=== PATIENT | male | born 1940 | race Caucasian/White ===

== ENCOUNTER 2021-09-18 12:44 | Inpatient (IN) | payer MEDICARE, OTHER ==
[~2021-09-18] VITALS: Ht 170.2 cm; Wt 69.1 kg
[~2021-09-18 12:44] MED LIST: AMLO-489 PO; COLC1TAB3 PO; COLCPOW2 PO; FER325T PO; FINA5TAB4 OR; GEMF-19 OR; LEVO25TA49 PO; MEM5T PO; MULT-97 OR; MULTCAP45 PO; PANT40T PO; TAMS0.4C36 OR
[2021-09-18 13:50] LABS: Eosinophils # (auto) 0.1 10 ^3/uL (0-0.8); Lymphocytes # (auto) 0.6 10 ^3/uL (0.4-5.4); Monocytes # (auto) 0.4 10 ^3/uL (0-1.3); Neutrophils # (auto) 2.3 10 ^3/uL (1.6-8.6)
[2021-09-18 13:52] LABS: Basophils # (auto) 0 10 ^3/uL (0-0.2); Basophils % (auto) 1.1 % (0.0-2.0); Eosinophils % (auto) 2.6 % (0.0-7.0); Hematocrit 35.7 % (41.0-53.0); Hemoglobin 11.9 g/dL (13.5-17.5); Lymphocytes % (auto) 18.2 % (10.0-50.0); Mean Corpuscular Hemoglobin 27.8 pg (28.0-32.0); Mean Corpuscular Hgb Conc. 33.4 g/dL (32.0-36.0); Mean Corpuscular Volume 83.2 fL (80.0-100.0); Monocytes % (auto) 12.6 % (0.0-12.0); Neutrophils % (auto) 65.5 % (37.0-80.0); Nucleated Red Blood Cells % 0.2 %; Red Blood Cells 4.29 10^6/uL (4.5-5.90); Red Cell Distribution Width 15.9 % (11.8-14.3); White Blood Cell 3.5 10^3/uL (4.4-10.8)
[2021-09-18 15:05] LABS: Albumin 3.4 g/dL (3.4-5.0); BUN/Creatinine Ratio 29.3; Bilirubin, Total 0.7 mg/dL (0.2-1.0); Calcium 8.8 mg/dL (8.5-10.1); Total Protein 6.8 g/dL (6.4-8.2)
[2021-09-18] MEDS ORDERED: NITROGLYCERIN 0.4 MG SL TAB SL PRN ×2 (17:15→18:30)
[2021-09-18] MEDS ORDERED: MORPHINE SULFATE INJECTION 2 MG/ML SYRG IV PRN ×2 (17:15→18:30)
[2021-09-18] MEDS ORDERED: PANTOPRAZOLE 40 MG/10 ML VIAL INJ IV ONE (18:00)
[2021-09-18] MEDS ORDERED: methylPREDNISolone SOD SUCC 125 MG/2 ML VL IV ONE (18:00)
[2021-09-18] MEDS: SODIUM CHLORIDE 0.9% 1,000 ML IV SCH (18:10)
[2021-09-18] MEDS ORDERED: ONDANSETRON HCL 4 MG/2 ML VIAL IV PRN (18:30)
[2021-09-18] MEDS ORDERED: HYDROcodone-ACET 5/325MG TAB PO PRN (18:30)
[2021-09-18] MEDS ORDERED: LORazepam 0.5 MG TAB PO PRN (18:30)
[2021-09-18] MEDS ORDERED: DOCUSATE SOD 100 MG CAP PO PRN (18:30)
[2021-09-18] MEDS ORDERED: ALUM & MAG HYDROX-SIMETH LIQ(MAALOX) 30 ML PO PRN (18:30)
[2021-09-18 18:50] LABS: Cholesterol 153 mg/dL (< 200)
[2021-09-18 18:52] LABS: HDL Cholesterol 51 mg/dL (40-59); LDL Cholesterol 88 mg/dL (< 100); Triglycerides 86 mg/dL (< 150)
[2021-09-18 21:00] VITALS: BP 153/81
[2021-09-18 21:22] VITALS: BP 133/67
[2021-09-18 21:37] VITALS: BP 140/68
[2021-09-18 22:00] VITALS: BP 153/81
[2021-09-18 22:19] LABS: Urine Bacteria NONE SEEN /hpf (None Seen); Urine Blood Negative /uL (Negative); Urine Mucus FEW (None Seen); Urine Specific Gravity 1.016 (1.001-1.035); Urine WBC 1 /hpf (0 - 3)
[2021-09-18 22:29] LABS: Amphetamine Screen, Urine NEGATIVE (NEGATIVE); Barbiturate Scree,Urine NEGATIVE (NEGATIVE); Benzodiazephine Screen, Urine NEGATIVE (NEGATIVE); Cannabinoid Screen, Urine NEGATIVE (NEGATIVE); Cocaine Screen, Urine NEGATIVE (NEGATIVE); Opiate Scree,Urine NEGATIVE (NEGATIVE); Phencyclidine Screen, Urine NEGATIVE (NEGATIVE)
[2021-09-19] VITALS (10 sets, daily range): BP systolic 112–140; BP diastolic 51–71
[2021-09-19] MEDS: methylPREDNISolone SOD SUCC 40 MG/ML VL IV SCH ×3 (00:45→12:16)
[2021-09-19 06:07] LABS: Basophils # (auto) 0 10 ^3/uL (0-0.2); Eosinophils # (auto) 0 10 ^3/uL (0-0.8); Lymphocytes # (auto) 0.4 10 ^3/uL (0.4-5.4); Mean Corpuscular Hemoglobin 28.6 pg (28.0-32.0); Monocytes # (auto) 0.1 10 ^3/uL (0-1.3); Neutrophils # (auto) 2.2 10 ^3/uL (1.6-8.6); White Blood Cell 2.7 10^3/uL (4.4-10.8)
[2021-09-19 06:11] LABS: Basophils % (auto) 0.6 % (0.0-2.0); Eosinophils % (auto) 0.2 % (0.0-7.0); Hematocrit 31.4 % (41.0-53.0); Hemoglobin 10.7 g/dL (13.5-17.5); Lymphocytes % (auto) 15.2 % (10.0-50.0); Mean Corpuscular Hgb Conc. 34.2 g/dL (32.0-36.0); Mean Corpuscular Volume 83.8 fL (80.0-100.0); Monocytes % (auto) 3.1 % (0.0-12.0); Neutrophils % (auto) 80.9 % (37.0-80.0); Red Blood Cells 3.75 10^6/uL (4.5-5.90); Red Cell Distribution Width 15.9 % (11.8-14.3)
[2021-09-19 06:19] LABS: INR 1.1 (0.9-1.15); Partial Thromboplastin Time 26.2 sec (23.6-33.0)
[2021-09-19 06:26] LABS: Potassium 4.2 mmol/L (3.5-5.1)
[2021-09-19] MEDS: LEVOTHYROXINE SODIUM 25 MCG TAB PO SCH (06:37)
[2021-09-19 06:41] LABS: Albumin 2.9 g/dL (3.4-5.0); BUN/Creatinine Ratio 25.9; Bilirubin, Total 0.5 mg/dL (0.2-1.0); Calcium 8.2 mg/dL (8.5-10.1); Magnesium 2.6 mg/dL (1.6-2.6); Total Protein 6.1 g/dL (6.4-8.2)
[2021-09-19] MEDS: GEMFIBROZIL 600 MG TAB PO SCH (09:16)
[2021-09-19] MEDS: FERROUS SULFATE 325mg EC TAB PO SCH ×2 (09:16→16:49)
[2021-09-19] MEDS: amLODIPine BESYLATE 5 MG TAB PO SCH (09:17)
[2021-09-19] MEDS: PANTOPRAZOLE 40 MG TAB PO SCH (09:18)
[2021-09-19] MEDS: FINASTERIDE 5 MG TAB PO SCH (09:18)
[2021-09-19] MEDS: MULTIPLE VITAMIN TAB PO SCH (09:20)
[2021-09-19] MEDS ORDERED: PANTOPRAZOLE 40 MG/10 ML VIAL INJ IV SCH (10:00)
[2021-09-19] MEDS: SODIUM CHLORIDE 0.9% 1,000 ML IV SCH (12:15)
[2021-09-19] MEDS ORDERED: methylPREDNISolone SOD SUCC 125 MG/2 ML VL IV SCH (14:00)
[2021-09-19] MEDS ORDERED: TAMSULOSIN HYDROCHLORIDE 0.4 MG CAP PO SCH (18:00)
[2021-09-19] MEDS: methylPREDNISolone SOD SUCC 125 MG/2 ML VL IV SCH (21:35)
[2021-09-20 02:30] VITALS: BP 129/72
[2021-09-20 02:53] VITALS: BP 117/62
[2021-09-20] MEDS: SODIUM CHLORIDE 0.9% 1,000 ML IV SCH (03:20)
[2021-09-20 04:43] VITALS: BP 123/50
[2021-09-20] MEDS: methylPREDNISolone SOD SUCC 125 MG/2 ML VL IV SCH ×2 (06:07→10:10)
[2021-09-20] MEDS: LEVOTHYROXINE SODIUM 25 MCG TAB PO SCH (06:10)
[2021-09-20 06:30] VITALS: BP 123/50
[2021-09-20 07:17] LABS: Basophils # (auto) 0 10 ^3/uL (0-0.2); Basophils % (auto) 0.1 % (0.0-2.0); Eosinophils # (auto) 0 10 ^3/uL (0-0.8); Eosinophils % (auto) 0.1 % (0.0-7.0); Hematocrit 32.7 % (41.0-53.0); Hemoglobin 11.4 g/dL (13.5-17.5); Lymphocytes # (auto) 0.7 10 ^3/uL (0.4-5.4); Lymphocytes % (auto) 10.8 % (10.0-50.0); Mean Corpuscular Hemoglobin 29.3 pg (28.0-32.0); Mean Corpuscular Hgb Conc. 34.9 g/dL (32.0-36.0); Monocytes # (auto) 0.3 10 ^3/uL (0-1.3); Neutrophils # (auto) 5.1 10 ^3/uL (1.6-8.6); Nucleated Red Blood Cells % 0.1 %; White Blood Cell 6.1 10^3/uL (4.4-10.8)
[2021-09-20 07:29] LABS: Potassium 4.2 mmol/L (3.5-5.1)
[2021-09-20 07:38] LABS: Albumin 3.3 g/dL (3.4-5.0); BUN/Creatinine Ratio 29.7; Bilirubin, Total 0.4 mg/dL (0.2-1.0); Calcium 8.5 mg/dL (8.5-10.1); Total Protein 6.3 g/dL (6.4-8.2)
[2021-09-20 09:00] VITALS: BP 143/71
[2021-09-20] MEDS: FERROUS SULFATE 325mg EC TAB PO SCH (10:07)
[2021-09-20] MEDS: MULTIPLE VITAMIN TAB PO SCH (10:08)
[2021-09-20] MEDS: GEMFIBROZIL 600 MG TAB PO SCH (10:08)
[2021-09-20] MEDS: FINASTERIDE 5 MG TAB PO SCH (10:09)
[2021-09-20] MEDS: PANTOPRAZOLE 40 MG TAB PO SCH (10:09)
[2021-09-20] MEDS: amLODIPine BESYLATE 5 MG TAB PO SCH (10:09)
[2021-09-20 12:16] VITALS: BP 125/75
== END 2021-09-20 12:30 | disposition home or self-care (01) | DRG 813 ==
LOC: ER 12:44 → TELE 17:15 → TELE-WESTW 18:55
PROVIDERS: ADMIT Hospitalist; ATTEND Family Medicine
PROC: 30233R1 Transfusion of Nonautologous Platelets into Peripheral Vein, Percutaneous Approach (ICD-10-PCS; principal; 2021-09-18)
DX: D69.3 Immune thrombocytopenic purpura (principal); C91.10 Chronic lymphocytic leukemia of B-cell type not having achieved remission; D75.81 Myelofibrosis; D64.9 Anemia, unspecified; E03.9 Hypothyroidism, unspecified; E78.00 Pure hypercholesterolemia, unspecified; E78.5 Hyperlipidemia, unspecified; G30.9 Alzheimer's disease, unspecified; F02.80 Dementia in other diseases classified elsewhere, unspecified severity, without behavioral disturbance, psychotic disturbance, mood disturbance, and anxiety; M10.9 Gout, unspecified; H91.90 Unspecified hearing loss, unspecified ear; I10 Essential (primary) hypertension; S50.12XA Contusion of left forearm, initial encounter; S50.11XA Contusion of right forearm, initial encounter; X58.XXXA Exposure to other specified factors, initial encounter; K21.9 Gastro-esophageal reflux disease without esophagitis; N40.0 Benign prostatic hyperplasia without lower urinary tract symptoms; Z80.0 Family history of malignant neoplasm of digestive organs; Z80.42 Family history of malignant neoplasm of prostate; Z85.038 Personal history of other malignant neoplasm of large intestine; Z85.46 Personal history of malignant neoplasm of prostate; Z86.2 Personal history of diseases of the blood and blood-forming organs and certain disorders involving the immune mechanism; Z88.0 Allergy status to penicillin; Z88.8 Allergy status to other drugs, medicaments and biological substances; Z90.49 Acquired absence of other specified parts of digestive tract; Y93.89 Activity, other specified; Y92.89 Other specified places as the place of occurrence of the external cause; Y99.8 Other external cause status
CPT/HCPCS: 36415; 80053; 80061; 80307; 81001; 83036; 83735; 83880; 84100; 84484; 85025; 85049; 85610; 85730; 86022; 86850; 86900; 86901; 87040; 87086; 87426; 96361; 96374; 96375; C9113; G0378

== ENCOUNTER 2021-12-14 13:44 | Inpatient (IN) | payer MEDICARE, OTHER ==
[~2021-12-14] VITALS: Ht 172.7 cm; Wt 66.3 kg
[~2021-12-14 13:44] MED LIST changes: -COLC1TAB3 PO; -MEM5T PO; -MULTCAP45 PO; -PANT40T PO
[2021-12-14] MEDS ORDERED: SODIUM CHLORIDE 0.9% 500 ML IVB ONE (14:00)
[2021-12-14 15:09] LABS: Basophils # (auto) 0.3 10 ^3/uL (0-0.2); Basophils % (auto) 5.4 % (0.0-2.0); Eosinophils # (auto) 0.1 10 ^3/uL (0-0.8); Eosinophils % (auto) 2.1 % (0.0-7.0); Hematocrit 43.3 % (41.0-53.0); Hemoglobin 14.8 g/dL (13.5-17.5); Lymphocytes # (auto) 0.5 10 ^3/uL (0.4-5.4); Lymphocytes % (auto) 7.5 % (10.0-50.0); Mean Corpuscular Hemoglobin 31.1 pg (28.0-32.0); Mean Corpuscular Hgb Conc. 34.2 g/dL (32.0-36.0); Mean Corpuscular Volume 90.8 fL (80.0-100.0); Monocytes # (auto) 0.5 10 ^3/uL (0-1.3); Monocytes % (auto) 7.7 % (0.0-12.0); Neutrophils # (auto) 4.9 10 ^3/uL (1.6-8.6); Neutrophils % (auto) 77.3 % (37.0-80.0); Red Blood Cells 4.77 10^6/uL (4.5-5.90); Red Cell Distribution Width 13.1 % (11.8-14.3); White Blood Cell 6.3 10^3/uL (4.4-10.8)
[2021-12-14 15:35] LABS: Albumin 2.8 g/dL (3.4-5.0); Calcium 8.2 mg/dL (8.5-10.1); Potassium 3.7 mmol/L (3.5-5.1)
[2021-12-14 15:39] LABS: BUN/Creatinine Ratio 10.3; Bilirubin, Total 0.4 mg/dL (0.2-1.0); Total Protein 5.8 g/dL (6.4-8.2)
[2021-12-14 17:01] LABS: Urine Bacteria MOD /hpf (None Seen); Urine Blood 1+ /uL (Negative); Urine Budding Yeast FEW /hpf (None Seen); Urine Hyaline Cast FEW /lpf (0 - 2); Urine Specific Gravity 1.013 (1.001-1.035); Urine WBC 412 /hpf (0 - 3)
[2021-12-14] MEDS ORDERED: MORPHINE SULFATE INJECTION 2 MG/ML SYRG IV PRN ×3 (17:45→18:00)
[2021-12-14] MEDS ORDERED: cefTRIAXone 1GM/50ML D5W 50 ML IV ONE (17:45)
[2021-12-14] MEDS ORDERED: NITROGLYCERIN 0.4 MG SL TAB SL PRN ×2 (17:45→18:00)
[2021-12-14] MEDS ORDERED: TEMAZEPAM 15 MG CAP PO PRN (18:00)
[2021-12-14] MEDS ORDERED: ACETAMINOPHEN 325 MG TAB PO PRN (18:00)
[2021-12-14] MEDS ORDERED: METOCLOPRAMIDE HCL 5MG/ml INJ 2ml VIAL IV PRN (18:00)
[2021-12-14] MEDS ORDERED: DOCUSATE SOD 100 MG CAP PO PRN (18:00)
[2021-12-14] MEDS: SODIUM CHLORIDE 0.9% 1,000 ML IV SCH (18:26)
[2021-12-14] MEDS ORDERED: BUMETANIDE 2.5mg/10ml (0.25 mg/ml) INJ IV ONE (18:30)
[2021-12-14 19:11] LABS: Cholesterol 144 mg/dL (< 200); HDL Cholesterol 30 mg/dL (40-59); Triglycerides 93 mg/dL (< 150)
[2021-12-14 21:29] VITALS: BP 128/61
[2021-12-14 21:30] VITALS: BP 128/68
[2021-12-15] MEDS: SODIUM CHLORIDE 0.9% 1,000 ML IV SCH (00:44)
[2021-12-15 05:00] VITALS: BP 103/56
[2021-12-15] MEDS ORDERED: BENA10TA15 PO (06:30)
[2021-12-15] MEDS: BUMETANIDE 2.5mg/10ml (0.25 mg/ml) INJ IV SCH ×2 (06:45→17:34)
[2021-12-15] MEDS: FERROUS SULFATE 325mg EC TAB PO SCH ×2 (08:05→17:34)
[2021-12-15 09:00] VITALS: BP 117/79
[2021-12-15] MEDS: levoFLOXacin 500MG 100 ML IV SCH (10:12)
[2021-12-15] MEDS: TAMSULOSIN HYDROCHLORIDE 0.4 MG CAP PO SCH (10:12)
[2021-12-15] MEDS: ENOXAPARIN SOD 40 MG/0.4 ML SYRINGE SC SCH (10:13)
[2021-12-15] MEDS: LEVOTHYROXINE SODIUM 25 MCG TAB PO SCH (10:13)
[2021-12-15] MEDS: GEMFIBROZIL 600 MG TAB PO SCH (10:13)
[2021-12-15] MEDS: FINASTERIDE 5 MG TAB PO SCH (10:13)
[2021-12-15 12:06] VITALS: BP 119/68
[2021-12-15] MEDS ORDERED: VANCOMYCIN PER PHARMACY 0 MG IV SCH (13:30)
[2021-12-15] MEDS ORDERED: VANCOMYCIN 1GM/250ML 250 ML IV ONE (13:45)
[2021-12-15 16:21] VITALS: BP 109/68
[2021-12-15 22:24] VITALS: BP 123/68
[2021-12-16 05:00] VITALS: BP 110/69
[2021-12-16] MEDS: VANCOMYCIN 750mg/250ml 250 ML IV SCH ×2 (05:37→18:44)
[2021-12-16] MEDS: BUMETANIDE 2.5mg/10ml (0.25 mg/ml) INJ IV SCH (05:37)
[2021-12-16 06:04] LABS: Basophils # (auto) 0 10 ^3/uL (0-0.2); Basophils % (auto) 0.2 % (0.0-2.0); Eosinophils # (auto) 0 10 ^3/uL (0-0.8); Eosinophils % (auto) 0.4 % (0.0-7.0); Lymphocytes # (auto) 0.1 10 ^3/uL (0.4-5.4); Monocytes # (auto) 0.1 10 ^3/uL (0-1.3); Neutrophils # (auto) 3.2 10 ^3/uL (1.6-8.6); White Blood Cell 3.5 10^3/uL (4.4-10.8)
[2021-12-16 06:07] LABS: Hemoglobin 10.2 g/dL (13.5-17.5); Lymphocytes % (auto) 3.9 % (10.0-50.0); Mean Corpuscular Hemoglobin 30.2 pg (28.0-32.0); Mean Corpuscular Hgb Conc. 36.3 g/dL (32.0-36.0); Mean Corpuscular Volume 83.2 fL (80.0-100.0); Monocytes % (auto) 3.6 % (0.0-12.0); Neutrophils % (auto) 91.9 % (37.0-80.0); Nucleated Red Blood Cells % 0.3 %; Red Blood Cells 3.36 10^6/uL (4.5-5.90); Red Cell Distribution Width 18.2 % (11.8-14.3)
[2021-12-16 06:27] LABS: Albumin 2.1 g/dL (3.4-5.0); BUN/Creatinine Ratio 33.7; Bilirubin, Total 0.9 mg/dL (0.2-1.0); Calcium 7.9 mg/dL (8.5-10.1)
[2021-12-16 06:30] LABS: Potassium 2.7 mmol/L (3.5-5.1)
[2021-12-16] MEDS ORDERED: POTASSIUM CHL 20 Meq TABLET PO ONE (07:00)
[2021-12-16 09:00] VITALS: BP 112/67
[2021-12-16] MEDS: SODIUM CHLORIDE 0.9% 1,000 ML IV SCH ×2 (09:40→20:00)
[2021-12-16] MEDS: GEMFIBROZIL 600 MG TAB PO SCH (09:42)
[2021-12-16] MEDS: TAMSULOSIN HYDROCHLORIDE 0.4 MG CAP PO SCH (09:42)
[2021-12-16] MEDS: ENOXAPARIN SOD 40 MG/0.4 ML SYRINGE SC SCH (09:43)
[2021-12-16] MEDS: LEVOTHYROXINE SODIUM 25 MCG TAB PO SCH (09:43)
[2021-12-16] MEDS: levoFLOXacin 500MG 100 ML IV SCH (09:43)
[2021-12-16] MEDS: FERROUS SULFATE 325mg EC TAB PO SCH ×2 (09:43→18:44)
[2021-12-16] MEDS: FINASTERIDE 5 MG TAB PO SCH (09:43)
[2021-12-16 13:00] VITALS: BP 121/59
[2021-12-16 17:00] VITALS: BP 115/69
[2021-12-16] MEDS ORDERED: diphenhdrAMINE HCL 25 MG CAP PO ONE (18:15)
[2021-12-16] MEDS ORDERED: ACETAMINOPHEN 325 MG TAB PO ONE (18:15)
[2021-12-16 21:46] VITALS: BP 108/59
[2021-12-16] MEDS: methylPREDNISolone SOD SUCC 125 MG/2 ML VL IV SCH (22:35)
[2021-12-16] MEDS: ACETAMINOPHEN 325 MG TAB PO SCH (22:40)
[2021-12-16] MEDS: diphenhdrAMINE HCL 25 MG CAP PO SCH (22:40)
[2021-12-17] VITALS (8 sets, daily range): BP systolic 105–122; BP diastolic 63–73
[2021-12-17 06:00] LABS: Hemoglobin 9.6 g/dL (13.5-17.5)
[2021-12-17 06:06] LABS: Mean Corpuscular Hemoglobin 30.3 pg (28.0-32.0); Mean Corpuscular Hgb Conc. 35.6 g/dL (32.0-36.0); Mean Corpuscular Volume 85.1 fL (80.0-100.0); Red Blood Cells 3.18 10^6/uL (4.5-5.90); Red Cell Distribution Width 18.3 % (11.8-14.3); White Blood Cell 2.5 10^3/uL (4.4-10.8)
[2021-12-17 06:17] LABS: Albumin 2.2 g/dL (3.4-5.0); Calcium 7.7 mg/dL (8.5-10.1); Potassium 4.2 mmol/L (3.5-5.1)
[2021-12-17 06:21] LABS: Total Protein 5.2 g/dL (6.4-8.2)
[2021-12-17 06:26] LABS: Basophils % (manual) 0 (0.0-2.0); Blast Cells 0; Eosinophils % (manual) 0 (0-7); Metamyelocytes % 0; Myelocytes % 0; Promyelocytes % 0; Reactive Lymphocytes 0
[2021-12-17] MEDS: methylPREDNISolone SOD SUCC 125 MG/2 ML VL IV SCH (06:27)
[2021-12-17] MEDS: BUMETANIDE 1mg/4ml VIAL (0.25mg/ml) IV SCH ×2 (06:31→18:14)
[2021-12-17] MEDS: LEVOTHYROXINE SODIUM 25 MCG TAB PO SCH (06:39)
[2021-12-17] MEDS: VANCOMYCIN 750mg/250ml 250 ML IV SCH ×2 (08:00→18:15)
[2021-12-17] MEDS: FERROUS SULFATE 325mg EC TAB PO SCH ×2 (08:35→18:15)
[2021-12-17 09:00] LABS: Band Neutrophils % (manual) 7; Lymphocytes % (manual) 4 (10.0-50.0); Monocytes % (manual) 2 (0-12)
[2021-12-17] MEDS: ENOXAPARIN SOD 40 MG/0.4 ML SYRINGE SC SCH (10:00)
[2021-12-17] MEDS: levoFLOXacin 500MG 100 ML IV SCH (10:21)
[2021-12-17] MEDS: FINASTERIDE 5 MG TAB PO SCH (10:22)
[2021-12-17] MEDS: GEMFIBROZIL 600 MG TAB PO SCH (10:22)
[2021-12-17] MEDS: TAMSULOSIN HYDROCHLORIDE 0.4 MG CAP PO SCH (10:22)
[2021-12-17] MEDS ORDERED: PRED20TA2 PO (10:42)
[2021-12-17] MEDS ORDERED: LEVO100C3 PO (10:42)
[2021-12-17] MEDS ORDERED: POTA10TA51 PO (10:42)
[2021-12-17] MEDS ORDERED: METF-916 PO (10:42)
[2021-12-17] MEDS ORDERED: CHLO25TA2 PO (10:42)
[2021-12-17] MEDS ORDERED: COLC0.6T56 PO (10:42)
[2021-12-17] MEDS ORDERED: AMLO-489 PO (10:49)
[2021-12-17] MEDS ORDERED: BENA10TA15 PO (10:49)
[2021-12-17] MEDS: SODIUM CHLORIDE 0.9% 1,000 ML IV SCH (12:51)
[2021-12-17] MEDS ORDERED: DEXTROSE (50%) 50ML SYRG IV PRN (16:00)
[2021-12-17] MEDS: methylPREDNISolone SOD SUCC 40 MG/ML VL IV SCH ×2 (16:41→22:09)
[2021-12-17] MEDS: InsuLIN REG 1unit/0.01ml Soln (100units/ml) SC SCH ×2 (16:44→22:36)
[2021-12-17] MEDS: ACCU-CHEK COMFORT CURVE STRIP VI SCH ×2 (16:53→22:00)
[2021-12-17] MEDS: ACETAMINOPHEN 325 MG TAB PO SCH (21:22)
[2021-12-17] MEDS: diphenhdrAMINE HCL 25 MG CAP PO SCH (21:22)
[2021-12-18 05:45] VITALS: BP 124/70
[2021-12-18] MEDS: SODIUM CHLORIDE 0.9% 1,000 ML IV SCH ×2 (05:48→22:03)
[2021-12-18 06:05] LABS: Basophils # (auto) 0 10 ^3/uL (0-0.2); Basophils % (auto) 0.1 % (0.0-2.0); Eosinophils # (auto) 0 10 ^3/uL (0-0.8); Hematocrit 24.2 % (41.0-53.0); Hemoglobin 8.8 g/dL (13.5-17.5); Lymphocytes # (auto) 0.2 10 ^3/uL (0.4-5.4); Lymphocytes % (auto) 4.4 % (10.0-50.0); Mean Corpuscular Hemoglobin 31.2 pg (28.0-32.0); Mean Corpuscular Hgb Conc. 36.4 g/dL (32.0-36.0); Mean Corpuscular Volume 85.7 fL (80.0-100.0); Monocytes # (auto) 0.2 10 ^3/uL (0-1.3); Monocytes % (auto) 4.1 % (0.0-12.0); Neutrophils # (auto) 3.7 10 ^3/uL (1.6-8.6); Neutrophils % (auto) 91.4 % (37.0-80.0); Nucleated Red Blood Cells % 0.5 %; Red Blood Cells 2.82 10^6/uL (4.5-5.90); Red Cell Distribution Width 18.1 % (11.8-14.3)
[2021-12-18 06:30] LABS: Magnesium 1.7 mg/dL (1.6-2.6); Potassium 3.3 mmol/L (3.5-5.1)
[2021-12-18 06:33] LABS: BUN/Creatinine Ratio 27.2
[2021-12-18 06:35] LABS: Bilirubin, Total 0.5 mg/dL (0.2-1.0); Total Protein 6.1 g/dL (6.4-8.2)
[2021-12-18] MEDS: BUMETANIDE 1mg/4ml VIAL (0.25mg/ml) IV SCH (06:58)
[2021-12-18] MEDS: methylPREDNISolone SOD SUCC 40 MG/ML VL IV SCH ×2 (06:58→22:04)
[2021-12-18] MEDS: ACCU-CHEK COMFORT CURVE STRIP VI SCH ×4 (06:59→22:04)
[2021-12-18] MEDS: VANCOMYCIN 750mg/250ml 250 ML IV SCH (06:59)
[2021-12-18] MEDS: LEVOTHYROXINE SODIUM 25 MCG TAB PO SCH (06:59)
[2021-12-18] MEDS: InsuLIN REG 1unit/0.01ml Soln (100units/ml) SC SCH ×4 (07:00→22:05)
[2021-12-18 09:00] VITALS: BP 109/62
[2021-12-18] MEDS ORDERED: methylPREDNISolone SOD SUCC 40 MG/ML VL IV SCH (10:00)
[2021-12-18] MEDS: ENOXAPARIN SOD 40 MG/0.4 ML SYRINGE SC SCH (10:00)
[2021-12-18] MEDS: GEMFIBROZIL 600 MG TAB PO SCH (10:31)
[2021-12-18] MEDS: FINASTERIDE 5 MG TAB PO SCH (10:32)
[2021-12-18] MEDS: FERROUS SULFATE 325mg EC TAB PO SCH ×2 (10:33→17:33)
[2021-12-18] MEDS: TAMSULOSIN HYDROCHLORIDE 0.4 MG CAP PO SCH (10:33)
[2021-12-18] MEDS: glyBURIDE 5 MG TAB PO SCH (10:34)
[2021-12-18] MEDS: levoFLOXacin 500MG 100 ML IV SCH (10:45)
[2021-12-18] MEDS ORDERED: POTASSIUM CHL 20 Meq TABLET PO ONE (11:00)
[2021-12-18] MEDS ORDERED: INSULIN LANTUS (GLARGINE) 1 /0.01ml (100units/ml) SC ONE (12:15)
[2021-12-18 13:00] VITALS: BP 115/68
[2021-12-18 17:00] VITALS: BP 128/70
[2021-12-18 22:00] VITALS: BP 102/70
[2021-12-18] MEDS: INSULIN LANTUS (GLARGINE) 1 /0.01ml (100units/ml) SC SCH (22:06)
[2021-12-19 05:00] VITALS: BP 125/76
[2021-12-19 05:08] VITALS: BP 125/76
[2021-12-19 05:37] LABS: Hematocrit 23.8 % (41.0-53.0); Hemoglobin 8.5 g/dL (13.5-17.5); Mean Corpuscular Hemoglobin 30.7 pg (28.0-32.0); Mean Corpuscular Hgb Conc. 35.8 g/dL (32.0-36.0); Mean Corpuscular Volume 85.9 fL (80.0-100.0); Red Blood Cells 2.77 10^6/uL (4.5-5.90); White Blood Cell 4.4 10^3/uL (4.4-10.8)
[2021-12-19 05:40] LABS: Potassium 3.6 mmol/L (3.5-5.1)
[2021-12-19 05:45] LABS: Basophils % (manual) 0 (0.0-2.0); Blast Cells 0; Eosinophils % (manual) 0 (0-7); Promyelocytes % 0; Reactive Lymphocytes 0
[2021-12-19 05:49] LABS: Albumin 1.9 g/dL (3.4-5.0); BUN/Creatinine Ratio 30.4; Bilirubin, Total 0.5 mg/dL (0.2-1.0); Calcium 7.9 mg/dL (8.5-10.1); Total Protein 6.6 g/dL (6.4-8.2)
[2021-12-19] MEDS: LEVOTHYROXINE SODIUM 25 MCG TAB PO SCH (06:45)
[2021-12-19] MEDS: ACCU-CHEK COMFORT CURVE STRIP VI SCH ×4 (06:47→21:52)
[2021-12-19] MEDS: InsuLIN REG 1unit/0.01ml Soln (100units/ml) SC SCH ×4 (07:09→21:51)
[2021-12-19 07:25] LABS: Band Neutrophils % (manual) 1; Lymphocytes % (manual) 3 (10.0-50.0); Metamyelocytes % 1; Monocytes % (manual) 2 (0-12); Myelocytes % 1
[2021-12-19] MEDS: glyBURIDE 5 MG TAB PO SCH (08:44)
[2021-12-19] MEDS: FERROUS SULFATE 325mg EC TAB PO SCH ×2 (08:44→18:00)
[2021-12-19] MEDS: TAMSULOSIN HYDROCHLORIDE 0.4 MG CAP PO SCH (08:50)
[2021-12-19] MEDS: FINASTERIDE 5 MG TAB PO SCH (08:50)
[2021-12-19] MEDS: GEMFIBROZIL 600 MG TAB PO SCH (08:50)
[2021-12-19] MEDS: methylPREDNISolone SOD SUCC 40 MG/ML VL IV SCH ×2 (08:50→21:51)
[2021-12-19] MEDS: levoFLOXacin 500MG 100 ML IV SCH (08:57)
[2021-12-19 09:00] VITALS: BP 116/70
[2021-12-19] MEDS: ENOXAPARIN SOD 40 MG/0.4 ML SYRINGE SC SCH (10:00)
[2021-12-19 13:00] VITALS: BP 124/71
[2021-12-19 17:00] VITALS: BP 118/76
[2021-12-19] MEDS: INSULIN LANTUS (GLARGINE) 1 /0.01ml (100units/ml) SC SCH (21:51)
[2021-12-19 23:08] VITALS: BP 126/67
[2021-12-20 05:24] VITALS: BP 135/76
[2021-12-20 05:55] LABS: Hematocrit 25.2 % (41.0-53.0); Hemoglobin 9.1 g/dL (13.5-17.5); Mean Corpuscular Hemoglobin 30.9 pg (28.0-32.0); Mean Corpuscular Hgb Conc. 36.1 g/dL (32.0-36.0); Mean Corpuscular Volume 85.7 fL (80.0-100.0); Red Blood Cells 2.94 10^6/uL (4.5-5.90); Red Cell Distribution Width 18.3 % (11.8-14.3); White Blood Cell 3.9 10^3/uL (4.4-10.8)
[2021-12-20 06:07] LABS: Albumin 1.9 g/dL (3.4-5.0); BUN/Creatinine Ratio 29.7; Potassium 3.9 mmol/L (3.5-5.1)
[2021-12-20 06:10] LABS: Bilirubin, Total 0.5 mg/dL (0.2-1.0); Total Protein 6.1 g/dL (6.4-8.2)
[2021-12-20 06:18] LABS: Basophils % (manual) 0 (0.0-2.0); Blast Cells 0; Eosinophils % (manual) 0 (0-7); Metamyelocytes % 0; Promyelocytes % 0; Reactive Lymphocytes 0
[2021-12-20] MEDS: LEVOTHYROXINE SODIUM 25 MCG TAB PO SCH (06:34)
[2021-12-20] MEDS: InsuLIN REG 1unit/0.01ml Soln (100units/ml) SC SCH ×2 (06:34→12:30)
[2021-12-20] MEDS: ACCU-CHEK COMFORT CURVE STRIP VI SCH ×2 (06:34→11:57)
[2021-12-20 07:03] LABS: Band Neutrophils % (manual) 4; Lymphocytes % (manual) 3 (10.0-50.0); Monocytes % (manual) 3 (0-12); Myelocytes % 2
[2021-12-20] MEDS: glyBURIDE 5 MG TAB PO SCH (07:52)
[2021-12-20] MEDS: FERROUS SULFATE 325mg EC TAB PO SCH (07:52)
[2021-12-20 09:00] VITALS: BP 124/66
[2021-12-20] MEDS: TAMSULOSIN HYDROCHLORIDE 0.4 MG CAP PO SCH (09:33)
[2021-12-20] MEDS: GEMFIBROZIL 600 MG TAB PO SCH (09:33)
[2021-12-20] MEDS: FINASTERIDE 5 MG TAB PO SCH (09:33)
[2021-12-20] MEDS: levoFLOXacin 500MG 100 ML IV SCH (09:33)
[2021-12-20] MEDS ORDERED: predniSONE 5 MG TAB PO SCH (10:00)
[2021-12-20] MEDS: ENOXAPARIN SOD 40 MG/0.4 ML SYRINGE SC SCH (10:00)
[2021-12-20] MEDS ORDERED: LEVO500T31 PO (12:53)
[2021-12-20] MEDS ORDERED: PRED10TA PO (12:54)
[2021-12-20 13:00] VITALS: BP 120/66
[2021-12-26 23:25] LABS: LDL Cholesterol 97 mg/dL (< 100)
== END 2021-12-20 15:20 | disposition hospice, home (50) | DRG 689 ==
LOC: ER 13:51 → OVERFLOW 17:44 → WEST WING 23:07
PROVIDERS: ADMIT Registered Nurse; ATTEND Internal Medicine Geriatric Medicine
DX: N30.01 Acute cystitis with hematuria (principal); J18.9 Pneumonia, unspecified organism; R78.81 Bacteremia; E87.1 Hypo-osmolality and hyponatremia; E44.0 Moderate protein-calorie malnutrition; E03.9 Hypothyroidism, unspecified; E78.5 Hyperlipidemia, unspecified; F03.90 Unspecified dementia, unspecified severity, without behavioral disturbance, psychotic disturbance, mood disturbance, and anxiety; I11.0 Hypertensive heart disease with heart failure; Z66 Do not resuscitate; Z20.822 Contact with and (suspected) exposure to COVID-19; M06.9 Rheumatoid arthritis, unspecified; M48.061 Spinal stenosis, lumbar region without neurogenic claudication; N40.0 Benign prostatic hyperplasia without lower urinary tract symptoms; B96.89 Other specified bacterial agents as the cause of diseases classified elsewhere; E87.6 Hypokalemia; K57.90 Diverticulosis of intestine, part unspecified, without perforation or abscess without bleeding; E11.9 Type 2 diabetes mellitus without complications; D69.6 Thrombocytopenia, unspecified; G89.29 Other chronic pain; I50.9 Heart failure, unspecified; M54.30 Sciatica, unspecified side; M10.9 Gout, unspecified; K21.9 Gastro-esophageal reflux disease without esophagitis; M19.90 Unspecified osteoarthritis, unspecified site; R80.9 Proteinuria, unspecified; Z86.2 Personal history of diseases of the blood and blood-forming organs and certain disorders involving the immune mechanism; Z80.0 Family history of malignant neoplasm of digestive organs; Z80.42 Family history of malignant neoplasm of prostate
CPT/HCPCS: 36415; 51702; 71045; 74176; 80053; 80061; 80202; 81001; 82962; 83036; 83605; 83690; 83735; 84484; 85007; 85025; 85027; 87040; 87077; 87086; 87088; 87186; 96361; 96365; 96375; 97110; 97116; 97163; 97530; G0378; J0696; J1561; J1815; J1956